=== PATIENT | male | born 1960 | race Caucasian/White ===

== ENCOUNTER 2023-03-24 09:47 | Emergency (ER) | payer OTHER ==
[~2023-03-24] VITALS: Ht 180.3 cm; Wt 109.0 kg
[~2023-03-24 09:47] MED LIST: ASPIRIN EC325 MG; NORCO 5-325 TA1 EACH PO; OMEPRAZOLE20 MG; OXYCODONE HCL5 MG; SEPTRA DS TABL1 EACH PO
[2023-03-24] MEDS ORDERED: LIPITOR20 MG (10:05)
[2023-03-24] MEDS ORDERED: METFORMIN HCL500 MG PO (10:05)
[2023-03-24] MEDS ORDERED: METOPROLOL SUCC25 MG PO (10:05)
[2023-03-24] MEDS ORDERED: DIPHTH,PERTUSS(ACELL),TET VAC 0.5 ML SYRINGE IM ONE (10:30)
[2023-03-24] MEDS ORDERED: MUPIROCIN22 GM TOP (10:34)
[2023-03-24] MEDS ORDERED: DOXYCYCLINE HY100 MG PO (10:34)
== END 2023-03-24 10:44 | disposition home or self-care (01) ==
LOC: ED 09:47
DX: L03.011 Cellulitis of right finger (principal); E11.9 Type 2 diabetes mellitus without complications; F17.200 Nicotine dependence, unspecified, uncomplicated; Z79.899 Other long term (current) drug therapy; Z79.82 Long term (current) use of aspirin; Z79.84 Long term (current) use of oral hypoglycemic drugs; Z23 Encounter for immunization
CPT/HCPCS: 90715